=== PATIENT | female | born 1950 | race Caucasian/White ===

== ENCOUNTER → 2016-09-02 | Outpatient (CLI) | payer MEDICARE, OTHER ==
[~2016-09-02] MED LIST: PHENERGAN 25MG.25 M1 PO; PREVACID 30MG C30 M1 PO; VYTORIN 10 MG-41 TAB PO; ZOFRAN4 MG PO
[2016-09-02 18:22] LABS: AEROMONAS NOT DETECTED (NOT DETECTE); ASTROVIRUS NOT DETECTED (NOT DETECTE); CYCLOSPORA CAYETANENSIS NOT DETECTED (NOT DETECTE); E COLI O157 NOT DETECTED (NOT DETECTE); ENTEROAGGREGATIVE E COLI NOT DETECTED (NOT DETECTE); ENTEROPATHOGENIC E COLI NOT DETECTED (NOT DETECTE); ENTEROTOXIGENIC E COLI NOT DETECTED (NOT DETECTE); NOROVIRUS NOT DETECTED (NOT DETECTE); SAPOVIRUS NOT DETECTED (NOT DETECTE); SHIGA-LIKE TOXIN PROD. E COLI NOT DETECTED (NOT DETECTE); SHIGELLA/ENTEROINVASIVE E COLI NOT DETECTED (NOT DETECTE); VIBRIO CHOLERAE NOT DETECTED (NOT DETECTE)
== END ==
LOC: LAB 18:20
PROVIDERS: Family Medicine
DX: R19.7 Diarrhea, unspecified (principal)

== ENCOUNTER → 2016-09-03 | Outpatient (CLI) | payer MEDICARE, OTHER ==
[2016-09-03 12:42] LABS: LYMPH # 0.9 K/mm3 (0.7-4.5)
[2016-09-03 14:16] LABS: BUN 35 mg/dL (7-18)
[2016-09-03 14:17] LABS: GFR (ESTIMATED) 62 ML/MIN (59-)
[2016-09-03 15:13] LABS: HEMOGLOBIN 18.1 g/dL (12.2-16.2)
== END ==
LOC: LAB 11:36
PROVIDERS: Nurse Practitioner Family
DX: A08.0 Rotaviral enteritis (principal); R19.7 Diarrhea, unspecified

== ENCOUNTER → 2017-05-31 | Outpatient (CLI) | payer MEDICARE, OTHER ==
--- NOTE | 2017-06-01 10:26 | RADIOLOGY REPORT PS360 ---
US THYROID HISTORY: Follow-up thyroid nodules THYROID NODULE ORDERING PHYSICIAN: Master Hinds MD PATIENT AGE: 66 years COMPARISON: 11/20/2015 FINDINGS: Right lobe: 3.9 x 1 x 1.3 cm. No change 5 mm mixed mostly hypoechoic nodule upper pole. 3 mm slightly hypoechoic nodule lower pole unchanged Left lobe: 4 x 1 x 1.3 cm. No change 15 x 11 mm isoechoic nodule mid aspect with hypervascularity. Isthmus: Unremarkable IMPRESSION: No change bilateral thyroid nodules
== END ==
LOC: RAD 14:53
DX: E04.1 Nontoxic single thyroid nodule (principal)